=== PATIENT | female | born 1970 | race Caucasian/White ===

== ENCOUNTER 2019-01-22 07:52 | Day surgery (SDC) | payer OTHER ==
[2019-01-22] MEDS: SOD CHLORIDE 0.9% 1,000 ML IV (08:44)
[2019-01-22] MEDS ORDERED: FENTAnyl 50 MCG/ML VIAL ×2 (09:03→10:55)
[2019-01-22] MEDS ORDERED: ROCURONIUM 50 MG INJ (09:03)
[2019-01-22] MEDS ORDERED: MIDAZOLAM 1 MG/ML 2 ML INJ (09:03)
[2019-01-22] MEDS ORDERED: CEFAZOLIN 1 GM INJ (09:03)
[2019-01-22] MEDS ORDERED: PROPOFOL 20 ML (09:03)
[2019-01-22] MEDS ORDERED: POLYMYXIN/BACITRACIN 1L IRRIG (09:55)
[2019-01-22] MEDS ORDERED: HYDROCODONE/APAP (5/325) TAB PO (10:00)
[2019-01-22] MEDS ORDERED: ONDANSETRON 4 MG INJ IV (10:00)
[2019-01-22] MEDS ORDERED: BUPIVACAINE LIPOSOME/PF 266 MG/20 ML VIAL INFIL (10:00)
[2019-01-22] MEDS: BUPIVACAINE 0.25%/EPI (SDV) 30 ML INJ (10:55)
[2019-01-22] MEDS: BUPIVACAINE LIPOSOME/PF 266 MG/20 ML VIAL INFIL (11:02)
[2019-01-22] MEDS: GENTAMICIN 80 MG INJ (11:20)
[2019-01-22] MEDS ORDERED: SUGAMMADEX SODIUM 200 MG/2 ML VIAL IV (11:23)
[2019-01-22] MEDS ORDERED: DEXAMETHASONE 4 MG/ML 5 ML INJ (11:23)
[2019-01-22] MEDS ORDERED: ONDANSETRON 4 MG INJ (11:23)
[2019-01-22] MEDS ORDERED: METOCLOPRAMIDE 10 MG INJ (11:23)
[2019-01-22] MEDS ORDERED: ACETAMINOPHEN 325 MG TAB PO (11:30)
[2019-01-22] MEDS ORDERED: EPHEDrine 25 MG/5 ML SYG (11:33)
[2019-01-22] MEDS ORDERED: NALOXONE (0.4 MG/ML) INJ (11:33)
[2019-01-22] MEDS: ONDANSETRON 4 MG INJ IV (12:11)
[2019-01-22] MEDS: morphine 2 MG INJ IV (12:12)
[2019-01-22] MEDS ORDERED: HYDROmorphONE 1 MG/5 ML IV SYRINGE IV ×2 (12:30)
[2019-01-22] MEDS ORDERED: METOCLOPRAMIDE 10 MG INJ IV (12:30)
[2019-01-22] MEDS ORDERED: MEPERIDINE 25 MG INJ IV (12:30)
[2019-01-22] MEDS ORDERED: DIPHENHYDRAMINE 50 MG INJ IV (12:30)
[2019-01-22] MEDS ORDERED: EPHEDrine 25 MG/5 ML SYG IV (12:30)
[2019-01-22] MEDS ORDERED: FENTAnyl 50 MCG/ML VIAL IV ×2 (12:30)
[2019-01-22] MEDS ORDERED: OXYCODONE/ACETAMINOPHEN (5/325) TAB PO (12:30)
== END 2019-01-22 14:17 | disposition home or self-care (01) ==
LOC: SDS 07:52
DX: F64.9 Gender identity disorder, unspecified (principal); E55.9 Vitamin D deficiency, unspecified
CPT/HCPCS: 19325